=== PATIENT | female | born 1980 | race Caucasian/White ===

== ENCOUNTER 2018-04-26 11:01 | Day surgery (SDC) | payer BC ==
[~2018-04-26 11:01] MED LIST: Buffered Lidocaine 0.9% SYRIN* 5 ML/SYR SYRINGE INTRADERM ONE
[2018-04-26] MEDS ORDERED: Clindamycin 900 MG IVPREMIX(* 900 MG/50 ML SDV IV ONE (11:16)
[2018-04-26] MEDS ORDERED: Bupivacaine 0.5% SDV PF* 30ML VIAL ONE (12:03)
[2018-04-26] MEDS ORDERED: Dexamethasone IV* 4 MG/ML 5 ML VIAL (20 MG) ONE (12:04)
[2018-04-26] MEDS ORDERED: Lidocaine 1% INJ* 10 MG/ML 30 ML SDV ONE (12:04)
[2018-04-26] MEDS ORDERED: fentaNYL* 50 MCG/ML 2 ML VIAL (100 MCG VIAL) ONE (12:13)
[2018-04-26] MEDS ORDERED: Midazolam* 1 MG/ML 2 ML VIAL (2 MG) ONE (12:13)
[2018-04-26] MEDS ORDERED: Propofol* 10 MG/ML 20 ML BTL IV PUSH ONE ×2 (12:14→13:08)
[2018-04-26] MEDS ORDERED: Ondansetron ODT TAB* 4 MG PO PRN (12:56)
[2018-04-26] MEDS ORDERED: Naloxone* 0.4 MG/ML 1 ML VIAL IV PRN (12:56)
[2018-04-26] MEDS ORDERED: Dexamethasone IV* 4 MG/ML 1 ML (4 MG) ONE (13:57)
--- NOTE | 2018-04-26 14:56 | RAD ---
Indication: Postop osteotomy RIGHT foot. Comparison: No relevant prior exams available on the [facility] for comparison. Technique: AP and lateral views RIGHT foot Report: Solitary screw traverses the proximal diaphysis metaphysis osteotomy site at the first metatarsal. 2 mm medial displacement at the osteotomy site. Adjacent lucent tract from probable guiding wire at the proximal diaphysis of the second metatarsal without fracture of the second metatarsal. Postsurgical change of resection of the medial margin of the distal metaphysis and head of the first metatarsal. Surrounding soft tissue edema and subcutaneous emphysema. Negative for malalignment. IMPRESSION: Postsurgical changes at the medial RIGHT forefoot as described.
[2018-04-26 15:17] VITALS: BP 112/76
--- NOTE | 2018-04-26 20:20 | RAD ---
INDICATION: Right foot surgery. COMPARISON: There are no prior studies available for comparison. TECHNIQUE: 48 seconds of intermittent fluoroscopic guidance were provided and 2 spot films of the right foot were obtained in the operating room. FINDINGS: The films demonstrate an osteotomy of the proximal first metatarsal and placement of a surgical screw spanning the osteotomy site. IMPRESSION: INTRAOPERATIVE CONTROL FILMS. CPT II Codes: G9500
--- NOTE | 2018-04-27 08:05 | OP ---
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 ANESTHESIA: MAC local. PRE-OP DIAGNOSIS: Right hallux valgus. POST-OP DIAGNOSIS: Right hallux valgus. OPERATIVE PROCEDURE: Right hallux valgus repair. ESTIMATED BLOOD LOSS: Less than 10 cc. IV FLUIDS: LR 1000 cc. DRAINS: None. SPECIMENS: Bone from the 1st metatarsal of the right foot. DESCRIPTION OF PROCEDURE: The patient was taken to the operating room, was placed in the supine position, time-out was called and OR team agreed. The right foot was then blocked with 10 cc of 1% lidocaine plain in a Taylor block fashion at the base of the 1st metatarsal. The foot was then prepped and draped in a sterile manner. The right foot was exsanguinated with an Esmarch bandage and the cuff was then inflated to 150 mmHg. Attention was then paid to the right foot 1st metatarsophalangeal joint where there was a hallux valgus deformity. This particular deformity has a high intermetatarsal angle, a high hallux abductus angle, and tibial sesamoid position of at least 6. I proceeded to make a longitudinal incision starting from approximately the base of the 1st metatarsal all the way down to the base of the hallux. This was followed by sharp and blunt dissection. All bleeders were either ligated or cauterized via Bovie and the neural structures were retracted from the site protecting it. The dissection went from the epidermis, dermis, subcutaneous tissue down to the deep fascia. Once I got to the deep fascia, I proceeded to incise the capsule with the longitudinal incision, went down to the joint examining the head of the 1st metatarsal. I noticed that on the dorsomedial aspect not only was there a prominent exostosis, but the articular cartilage at that portion was highly degraded, it was either denuded and had significant subchondral bleeding underneath that. I took a sagittal saw and resected that with the intention of remodeling the head of the first metatarsal preserving all of the healthy remaining articular cartilage forming a nice round effective joint. I also removed the dorsal eminence, so as to make sure that the hallux was able to flex nicely and without any limitation. I then turned my attention to the base of the 1st metatarsal all the way down of flare at the base. I then proceeded to make a long wedge-type of osteotomy. I resected the wedge bone creating a wedge defect. When I closed the wedge, it effectively reduced the intermetatarsal angle significantly as to bring the IM angle to normal. This also effectively shortened the metatarsal thereby decompressing the 1st metatarsophalangeal joint. I did also plantarflex it because I noticed on the x -rays, there was a noticeable 1st met elevatus. These series of steps effectively created a nice flexible joint in the 1st metatarsophalangeal joint where I hope she will be able to dorsiflex adequately and pain-free during the propulsion stage. Please note that the fixation of the ostetotomy under C-arm guidance with a guidewire. I used a 26-mm long cannulated screw from the [employer] set. I used a 3-mm screw head and to confirm proper fixation, I used the C-arm to confirm that. This completed the procedure. The wound was irrigated and closed in a layered anatomical fashion. The cuff was deflated. The foot was placed in a dry sterile dressing. The patient was taken to recovery in stable condition and was later discharged in stable condition as well. I will see her in my office in 3 days. [id number]/CPS #: [id number] NORMA
== END 2018-04-26 15:33 | disposition home or self-care (01) ==
LOC: OR 11:01
PROVIDERS: ATTEND Podiatrist
DX: M20.11 Hallux valgus (acquired), right foot (principal); Z72.0 Tobacco use; M19.90 Unspecified osteoarthritis, unspecified site; K58.9 Irritable bowel syndrome, unspecified; F41.8 Other specified anxiety disorders; G43.909 Migraine, unspecified, not intractable, without status migrainosus
CPT/HCPCS: 76000; 81025; 88304; 88311; C1713; C1776; J1100; J2250; J2704; J3010